=== PATIENT | male | born 1965 | race Caucasian/White ===

== ENCOUNTER → 2016-09-02 | Outpatient (CLI) | payer BC ==
[~2016-09-02] MED LIST: HUMIRA; PANT40TA PO; POTA1080; PRED-301; [UNRECOGNIZED DRUG - OTHER]
[2016-09-02 09:44] LABS: BASO % 0.6 %; BASO ABS # 0.06 K/uL (0-0.2); COMPLETE YES; EOS % 4.9 %; HEMATOCRIT 43.3 % (42-52); IG% 0.3 %; LYMPH % 27.6 %; LYMPH ABS # 2.71 K/uL (1.2-3.4); MEAN CELL VOLUME 90.6 fL (80-100); MEAN CORPUSCULAR HEMOGLOBIN 31.8 pg (25-34); MEAN CORPUSCULAR HGB CONC 35.1 g/dl (32-36); MEAN PLATELET VOLUME 11.1 fL (7.4-10.4); MONO % 9.9 %; NEUT % 56.7 %; PLATELET COUNT 194 K/uL (130-400); RED BLOOD COUNT 4.78 M/uL (4.7-6.1); WHITE BLOOD COUNT 9.82 K/uL (4.8-10.8)
[2016-09-02 09:48] LABS: URINE APPEARANCE CLEAR (CLEAR); URINE BILIRUBIN NEG (NEG); URINE COLOR YELLOW; URINE EPITHELIAL CELL AUTO 0-5 /lpf (0-5); URINE NITRITE NEG (NEG); URINE SPECIFIC GRAVITY 1.019 (1.000-1.030); UROBILINOGEN NEG (NEG)
[2016-09-02 09:51] LABS: MANUAL MICROSCOPIC REQUIRED? NO; REVIEW REQ? NO
[2016-09-02 09:55] LABS: ALT/SGPT 38 U/L (12-78); AST/SGOT 16 U/L (15-37); BLOOD UREA NITROGEN 19 mg/dl (7-18); BUN/CREATININE RATIO 17.1 (10-20); CALCIUM 8.9 mg/dl (8.5-10.1); CARBON DIOXIDE 27 mmol/L (21-32); CHLORIDE 101 mmol/L (98-107); GLUCOSE 86 mg/dl (70-99); POTASSIUM 3.8 mmol/L (3.5-5.1); SODIUM 138 mmol/L (136-145)
[2016-09-02 10:09] LABS: CHOLESTEROL 147 mg/dl (0-200); CHOLESTEROL/HDL RATIO 2.5; HDL CHOLESTEROL 59 mg/dl; LDL CHOLESTEROL CALCULATED 59 mg/dl; PROSTATE SPECIFIC ANTIGEN 0.355 ng/ml (0.000-4.000); TRIGLYCERIDES 145 mg/dl (0-150); VERY LOW DENSITY LIPOPROT CALC 29 mg/dl
[2016-09-02 10:12] LABS: ESTIMATED AVERAGE GLUCOSE 114 mg/dl; HA1C FLAG Normal (Normal)
--- NOTE | 2016-09-07 13:18 | CODING QUERY MEDICAL NECESSITY ---
SUPPORTING DIAGNOSIS NEEDED A supporting diagnosis is required for the test/procedure performed on this patient in order for us to be reimbursed by the patient's insurance. Please provide a supporting diagnosis for the following test/procedure listed below next to the test name along with your signature. *If there is no additional diagnosis for this patient that would support the following test/procedure please document that below next to the test/procedure. Test(s)/Procedure(s) that require a supporting diagnosis: DOS: 09/02/16 * PSA DIAGNOSIS: Provider Signature: Date: Thank you Ora [facility] Information Management Once completed, please kindly fax back to [phone] For questions please call [phone]
== END | disposition home or self-care (01) ==
LOC: C.LAB1850 07:47
PROVIDERS: ATTEND Internal Medicine
DX: E78.5 Hyperlipidemia, unspecified (principal); Z12.5 Encounter for screening for malignant neoplasm of prostate

== ENCOUNTER → 2017-03-31 | Outpatient (CLI) | payer BC ==
[~2017-03-31] MED LIST changes: +ADAL40KI IM; +AMLO-110 PO; +ASPI81TA28 PO; +ATOR-26 PO; +HYZ/10015 PO; +KRIL1CAP7 PO; +POTATAB2 PO; +PRED-301 PO; +[UNRECOGNIZED DRUG - CODE] PO
[2017-03-31 09:30] LABS: BASO % 0.6 %; BASO ABS # 0.06 K/uL (0-0.2); COMPLETE YES; EOS % 4.7 %; HEMATOCRIT 45.3 % (42-52); IG% 0.2 %; LYMPH % 22.8 %; LYMPH ABS # 2.33 K/uL (1.2-3.4); MEAN CELL VOLUME 90.8 fL (80-100); MEAN CORPUSCULAR HEMOGLOBIN 30.1 pg (25-34); MEAN CORPUSCULAR HGB CONC 33.1 g/dl (32-36); MEAN PLATELET VOLUME 10.9 fL (7.4-10.4); MONO % 9.8 %; NEUT % 61.9 %; PLATELET COUNT 194 K/uL (130-400); RED BLOOD COUNT 4.99 M/uL (4.7-6.1); WHITE BLOOD COUNT 10.23 K/uL (4.8-10.8)
[2017-03-31 09:36] LABS: URINE APPEARANCE CLEAR (CLEAR); URINE BILIRUBIN NEG (NEG); URINE COLOR YELLOW; URINE EPITHELIAL CELL AUTO 0-5 /lpf (0-5); URINE NITRITE NEG (NEG); URINE SPECIFIC GRAVITY 1.014 (1.000-1.030); UROBILINOGEN NEG (NEG)
[2017-03-31 09:37] LABS: MANUAL MICROSCOPIC REQUIRED? NO; REVIEW REQ? NO
[2017-03-31 09:41] LABS: ALT/SGPT 46 U/L (12-78); AST/SGOT 22 U/L (15-37); BLOOD UREA NITROGEN 13 mg/dl (7-18); BUN/CREATININE RATIO 11.9 (10-20); CALCIUM 8.8 mg/dl (8.5-10.1); CARBON DIOXIDE 26 mmol/L (21-32); CHLORIDE 103 mmol/L (98-107); GLUCOSE 96 mg/dl (70-99); POTASSIUM 4.1 mmol/L (3.5-5.1); SODIUM 136 mmol/L (136-145)
[2017-03-31 09:45] LABS: CHOLESTEROL 141 mg/dl (0-200); CHOLESTEROL/HDL RATIO 2.6; HDL CHOLESTEROL 55 mg/dl; LDL CHOLESTEROL CALCULATED 49 mg/dl; TRIGLYCERIDES 187 mg/dl (0-150); VERY LOW DENSITY LIPOPROT CALC 37 mg/dl
[2017-03-31 10:15] LABS: ESTIMATED AVERAGE GLUCOSE 117 mg/dl; HA1C FLAG Normal (Normal)
== END | disposition home or self-care (01) ==
LOC: C.LAB1850 07:52
PROVIDERS: ATTEND Internal Medicine
DX: E78.5 Hyperlipidemia, unspecified (principal)

== ENCOUNTER → 2017-05-31 | Day surgery (SDC) | payer BC ==
[2017-05-19 07:40] VITALS: Ht 170.2 cm; Wt 81.8 kg
[~2017-05-31] VITALS: Ht 170.2 cm; Wt 81.8 kg
[~2017-05-31] MED LIST changes: +ATROPINE SULFATE 0.1 MG/ML 5ML SYR IV PRN; +EpHEDrine SULFATE INJ 50 MG/ML AMP IV PRN; -HUMIRA; +LIDOCAINE HCL 2% 2 ML VIAL (20MG/ML) ONE; +MIDAZOLAM HCL 1 MG/ML 2ML VIAL ONE; +ONDANSETRON INJ 2 MG/ML 2 ML VIAL ONE; -PANT40TA PO; -POTA1080; -PRED-301; +PROPOFOL IV EMULSION 10 MG/ML 20 ML VIAL IV ONE; +SODIUM CHLORIDE 0.9% 500ML 500 ML IV ONE; -[UNRECOGNIZED DRUG - CODE] PO; -[UNRECOGNIZED DRUG - OTHER]
--- NOTE | 2017-05-31 10:08 | Endo History and Physical ---
History & Physical Date of Service: May 31, 2017. Chief Complaint: Screening Referring Physician: Dr. Vito Pryor History of Present Illness 52 yo CM who presents for screening colonoscopy. Past Surgical History Hx Cardiac Surgery: Yes (HEART CATH, NO STENTS; CABG X1 VESSEL) Hx Internal Defibrillator: No Hx Pacemaker: No Hx Abdominal Surgery: No Hx of Implantable Prosthesis: No Hx Post-Op Nausea and Vomiting: No Hx Cancer Surgery: No Hx Thoracic Surgery: No Hx Orthopedic: No Hx Urinary Tract Surgery: Yes (LITHOTRIPSY, TESTICULAR DISTORTION REPAIR) Family History Polyp Social History Smoking Status: Never Smoker Hx Substance Use: No Hx Alcohol Use: Yes ("A COUPLE BEERS/DAY") Allergies Coded Allergies: Iodinated Contrast Media (Verified Allergy, Unknown, RASH, 05/19/17) Current Medications Reported Home Medications Medications Dose Route/Sig Max Daily Dose Days Date Category Urocit-K 10 (Potassium Citrate (Alkalinizer) 1,080 Mg Tab 1 Tab PO QAM 05/19/17 Reported Krill Oil [place]-3 (Krill Oil) 1 Cap Cap 1 Cap PO BID 05/19/17 Reported Humira Pen (Adalimumab) 40 Mg/0.8 Ml Kit 1 Dose IM [id number] 05/19/17 Reported Norvasc (Amlodipine Besylate) 5 Mg Tab 5 Mg PO QAM 05/19/17 Reported Prednisone 5 Mg Tab 5 Mg PO QPM 05/19/17 Reported Hyzaar 25MG/100MG (HCTZ/Losartan Potassium) Tab 1 Tab PO QAM 05/19/17 Reported Lipitor (Atorvastatin Calcium) 80 Mg Tab 80 Mg PO QPM 05/19/17 Reported Aspirin Ec (Aspirin) 81 Mg Tab 81 Mg PO QAM 05/19/17 Reported Vital Signs Weight (Kilograms): 81.82 Height (Feet): 5 Height (Inches): 7 Date Time Temp Pulse Resp B/P (MAP) Pulse Ox O2 Delivery O2 Flow Rate FiO2 05/31/17 09:33 36.8 61 16 138/83 (101) 97 Room Air Physical Exam General Appearance: WD/WN, no apparent distress Respiratory/Chest: Auscultation: breath sounds normal Cardiovascular: Heart Auscultation: RRR Abdomen: Bowel Sounds: normal Inspection & Palpation: soft, non-distended, no tenderness, guarding & rebound Assessment and Plan Assessment: 52 yo CM who presents for screening colonoscopy. Plan: Proceed with colonoscopy.
--- NOTE | 2017-05-31 10:35 | GI REPORT ---
Procedure Date: 05/31/2017 9:45 AM Procedure: Colonoscopy Indications: Screening for colorectal malignant neoplasm Medicines: Monitored Anesthesia Care Complications: No immediate complications. Estimated Blood Loss: Estimated blood loss: none. Procedure: Pre-Anesthesia Assessment: - Prior to the procedure, a History and Physical was performed, and patient medications and allergies were reviewed. The patient's tolerance of previous anesthesia was also reviewed. The risks and benefits of the procedure and the sedation options and risks were discussed with the patient. All questions were answered, and informed consent was obtained. Prior Anticoagulants: The patient has taken aspirin, last dose was 1 day prior to procedure. ASA Grade Assessment: III - A patient with severe systemic disease. After reviewing the risks and benefits, the patient was deemed in satisfactory condition to undergo the procedure. After I obtained informed consent, the scope was passed under direct vision. Throughout the procedure, the patient's blood pressure, pulse, and oxygen saturations were monitored continuously. The scope was introduced through the anus and advanced to the terminal ileum. The colonoscopy was performed without difficulty. The patient tolerated the procedure well. The quality of the bowel preparation was good. The terminal ileum, ileocecal valve, appendiceal orifice, and rectum were photographed. Findings: The perianal and digital rectal examinations were normal. A 4 mm polyp was found in the sigmoid colon. The polyp was sessile. The polyp was removed with a cold snare. Resection and retrieval were complete. Non-bleeding internal hemorrhoids were found during retroflexion. The hemorrhoids were small. Impression: - One 4 mm polyp in the sigmoid colon, removed with a cold snare. Resected and retrieved. - Non-bleeding internal hemorrhoids. Recommendation: - Resume previous diet. - Continue present medications. - Repeat colonoscopy for surveillance based on pathology results. - Return to primary care physician as previously scheduled. Herrera Lerma DO 05/31/2017 10:35:16 AM This report has been signed electronically. Note Initiated On: 05/31/2017 9:45 AM I attest to the content of the Intraoperative Record and orders documented therein, exceptions below
--- NOTE | 2017-05-31 10:47 | Anesthesiology Progress Note ---
Anesthesia Post Op Note Date & Time May 31, 2017 at 10:47 Vital Signs Pain Intensity: 0 Vital Signs Past 12 Hours Date Time Temp Pulse Resp B/P (MAP) Pulse Ox O2 Delivery O2 Flow Rate FiO2 05/31/17 10:36 59 16 107/72 (84) 100 Room Air 05/31/17 09:33 36.8 61 16 138/83 (101) 97 Room Air Notes Mental Status: alert / awake / arousable, participated in evaluation Pt Amnestic to Procedure: Yes Nausea / Vomiting: adequately controlled Pain: adequately controlled Airway Patency, RR, SpO2: stable & adequate BP & HR: stable & adequate Hydration State: stable & adequate Anesthetic Complications: no major complications apparent
--- NOTE | 2017-05-31 10:55 | Discharge Instructions ---
Endoscopy Patient Instructions Date / Procedure(s) Performed May 31, 2017. Colonoscopy Allergy Information Coded Allergies: Iodinated Contrast Media (Verified Allergy, Unknown, RASH, 05/19/17) Discharge Date / Findings May 31, 2017. Colon polyp Internal hemorrhoids Medication Instructions Stopped Medication(s): Patient was told to hold everything except his norvasc this am. OK to resume all medications today as prescribed Reported Home Medications Medications Dose Route/Sig Max Daily Dose Days Date Category Urocit-K 10 (Potassium Citrate (Alkalinizer) 1,080 Mg Tab 1 Tab PO QAM 05/19/17 Reported Krill Oil [place]-3 (Krill Oil) 1 Cap Cap 1 Cap PO BID 05/19/17 Reported Humira Pen (Adalimumab) 40 Mg/0.8 Ml Kit 1 Dose IM [id number] 05/19/17 Reported Norvasc (Amlodipine Besylate) 5 Mg Tab 5 Mg PO QAM 05/19/17 Reported Prednisone 5 Mg Tab 5 Mg PO QPM 05/19/17 Reported Hyzaar 25MG/100MG (HCTZ/Losartan Potassium) Tab 1 Tab PO QAM 05/19/17 Reported Lipitor (Atorvastatin Calcium) 80 Mg Tab 80 Mg PO QPM 05/19/17 Reported Aspirin Ec (Aspirin) 81 Mg Tab 81 Mg PO QAM 05/19/17 Reported Provider Instructions Activity Restrictions - No exercising or heavy lifting for 24 hours. - Do not drink alcohol the day of the procedure. - Do not drive a car or operate machinery until the day after the procedure. - Do not make any important decisions or sign important papers in 24 hours after the procedure. Following Day: - Return to full activity which may include returning to work/school. Diet Start your diet with liquids and light foods (jello, soup, juice, toast). Then eat your usual diet if not nauseated. Treatment For Common After Affects For mild abdominal pain, bloating, or excessive gas: - Rest - Eat lightly - Lie on right side Follow-Up Information Follow-up with Dr. Vito Pryor as scheduled Anesthesia Information What You Should Know You have had a procedure that required some medicine to reduce anxiety and discomfort. This treatment is called moderate sedation. After receiving the treatment, you may be sleepy, but you will be able to breathe on your own. The effects of the treatment may last for several hours. Follow these instructions along with Activity/Diet recommendations noted above: * Do NOT do anything where dizziness or clumsiness would be dangerous. * Rest quietly at home today, then you can be up and about tomorrow. * Have a responsible person stay with you the rest of today. * You may have had an I.V. today. If so, you may take the dressing off later today. Recommendations Call your doctor if: * Trouble breathing * Continuous vomiting for more than 24 hours * Temperature above 101 degrees * Severe abdominal pain or bloating * Pain not relieved by pain medicine ordered * There is increased drainage or redness from any incision * A large amount of rectal bleeding greater than 2-3 tablespoons. (If you had a polyp/s removed or have hemorrhoids, a small amount of blood - from the rectum is to be expected.) * You have any unanswered questions or concerns. IN THE EVENT OF A SERIOUS EMERGENCY, GO TO THE NEAREST EMERGENCY ROOM Your discharge instructions were prepared by provider Herrera Lerma. Patient Instructions Signature Page Iain Kay Patient (or Guardian) Signature/Date: I have read and understand the instructions given to me by my caregivers. Caregiver/RN/Doctor Signature/Date: The above-named patient and/or guardian has received patient instructions on this date. + Original Patient Signature Page (only) stays with chart. Please make copy for patient.
[2017-05-31 11:06] VITALS: BP 136/86; PULSE 55; O2SAT 100
== END | disposition home or self-care (01) ==
LOC: C.GI 09:14
PROVIDERS: ATTEND Internal Medicine
DX: Z12.11 Encounter for screening for malignant neoplasm of colon (principal); D12.5 Benign neoplasm of sigmoid colon; K64.8 Other hemorrhoids; I25.10 Atherosclerotic heart disease of native coronary artery without angina pectoris; I10 Essential (primary) hypertension; I25.2 Old myocardial infarction; Z88.8 Allergy status to other drugs, medicaments and biological substances; Z79.899 Other long term (current) drug therapy; Z79.82 Long term (current) use of aspirin; Z95.1 Presence of aortocoronary bypass graft; Z98.890 Other specified postprocedural states; Z83.71 Family history of colonic polyps; Z68.28 Body mass index [BMI] 28.0-28.9, adult

== ENCOUNTER → 2017-09-30 | Outpatient (CLI) | payer OTHER ==
[~2017-09-30] MED LIST changes: -ATROPINE SULFATE 0.1 MG/ML 5ML SYR IV PRN; -EpHEDrine SULFATE INJ 50 MG/ML AMP IV PRN; -LIDOCAINE HCL 2% 2 ML VIAL (20MG/ML) ONE; -MIDAZOLAM HCL 1 MG/ML 2ML VIAL ONE; -ONDANSETRON INJ 2 MG/ML 2 ML VIAL ONE; -PROPOFOL IV EMULSION 10 MG/ML 20 ML VIAL IV ONE; -SODIUM CHLORIDE 0.9% 500ML 500 ML IV ONE
--- NOTE | 2017-09-30 08:05 | DIAGNOSTIC IMAGING REPORT ---
KUB HISTORY: Follow-up study in a patient with nephrolithiasis N20.0 Nephrolithiasis COMPARISON: [facility]UB 06/05/2016. FINDINGS: The bowel gas pattern is non-obstructive. There is no organomegaly. Punctate bilateral nephrolithiasis redemonstrated without definite ureteral calculi identified. Calcifications of the pelvis suggest phleboliths. No pneumoperitoneum or pneumatosis. No fracture. Partially imaged suspected pacer leads are noted within the central lower chest. IMPRESSION: Punctate bilateral nephrolithiasis without ureteral calculi identified. Electronically signed by: Arnie Sevilla M.D. 09/30/2017 8:04 AM Dictated Date/Time: 09/30/2017 8:02 AM
[2017-09-30 09:33] LABS: BASO % 0.5 %; BASO ABS # 0.05 K/uL (0-0.2); EOS % 5.6 %; EOS ABS # 0.53 K/uL (0-0.5); HEMOGLOBIN 14.9 g/dL (14.0-18.0); IG# 0.02 K/uL (0.00-0.02); LYMPH % 34.7 %; LYMPH ABS # 3.26 K/uL (1.2-3.4); MEAN CELL VOLUME 89.8 fL (80-100); MEAN CORPUSCULAR HEMOGLOBIN 30.4 pg (25-34); MEAN CORPUSCULAR HGB CONC 33.9 g/dl (32-36); MEAN PLATELET VOLUME 11.4 fL (7.4-10.4); MONO % 9.6 %; NEUT % 49.4 %; NEUT ABS # 4.63 K/uL (1.4-6.5); PLATELET COUNT 186 K/uL (130-400); RED CELL DISTRIBUTION WIDTH CV 12.9 % (11.5-14.5); RED CELL DISTRIBUTION WIDTH SD 41.9 fL (36.4-46.3); WHITE BLOOD COUNT 9.39 K/uL (4.8-10.8)
[2017-09-30 09:49] LABS: ALT/SGPT 39 U/L (12-78); AST/SGOT 20 U/L (15-37); BLOOD UREA NITROGEN 19 mg/dl (7-18); CALCIUM 8.9 mg/dl (8.5-10.1); CARBON DIOXIDE 25 mmol/L (21-32); CREATININE 1.11 mg/dl (0.60-1.40); GLUCOSE 93 mg/dl (70-99); POTASSIUM 3.8 mmol/L (3.5-5.1); SODIUM 135 mmol/L (136-145)
[2017-09-30 09:55] LABS: CHOLESTEROL 145 mg/dl (0-200); LDL CHOLESTEROL CALCULATED 69 mg/dl
[2017-09-30 10:00] LABS: HEMOGLOBIN A1C 5.7 % (4.5-5.6)
== END | disposition home or self-care (01) ==
LOC: C.RAD 07:24
PROVIDERS: ATTEND Internal Medicine
DX: N20.0 Calculus of kidney (principal); E78.5 Hyperlipidemia, unspecified

== ENCOUNTER 2022-02-02 21:58 | Observation (INO) ==
[2022-02-02 22:44] LABS: Basophils # (auto) 0.02 K/uL (0-0.2); Basophils % (auto) 0.1 %; Eosinophils # (auto) 0.36 K/uL (0-0.5); Eosinophils % (auto) 2.3 %; Hematocrit (blood only) 38.7 % (42-52); Hemoglobin 13.1 g/dL (14.0-18.0); Immature Granulocytes # (auto) 0.06 K/uL (0.00-0.02); Immature Granulocytes % (auto) 0.4 %; Lymphocytes # (auto) 2.33 K/uL (1.2-3.4); Lymphocytes % (auto) 14.8 %; Mean Corpuscular Hemoglobin 30.7 pg (25-34); Mean Corpuscular Hgb Conc 33.9 g/dL (32-36); Mean Corpuscular Volume 90.6 fL (80-100); Mean Platelet Volume 10.2 fL (7.4-10.4); Monocytes # (auto) 1.46 K/uL (0.11-0.59); Monocytes % (auto) 9.3 %; Neutrophils # (auto) 11.54 K/uL (1.4-6.5); Neutrophils % (auto) 73.1 %; Platelet Count 211 K/uL (130-400); RDW Coefficient of Variation 14.1 % (11.5-14.5); RDW Standard Deviation 46.6 fL (36.4-46.3); Red Blood Count 4.27 M/uL (4.7-6.1); White Blood Count 15.77 K/uL (4.8-10.8)
[2022-02-02 22:49] LABS: Appearance Urine Clear (Clear); Bacteria Urine Automated Negative (Negative); Bilirubin Urine Negative (Negative); Blood Urine 3+ (Negative); Cast Urine Automated 0 /lpf (0-5); Color Urine Yellow; Epithelial Cell Urine Auto 0-5 /lpf (0-5); Glucose Urine UA Negative (Negative); Ketones Urine Negative (Negative); Leukocyte Esterase Urine Negative (Negative); Nitrite Urine Negative (Negative); Protein Urine Negative (Negative); RBC Urine Automated >30 /hpf (0-4); Specific Gravity Urine 1.012 (1.000-1.030); Urobilinogen Urine Negative (Negative)
[2022-02-02] MEDS ORDERED: diphenhydrAMINE 50 MG/ML VIAL IV STA (22:57)
[2022-02-02] MEDS ORDERED: methylPREDNISolone 125 MG/2 ML VIAL IV STA (22:57)
[2022-02-02 23:13] LABS: Albumin Globulin Ratio 1.7 (0.9-2); Albumin Level 4.5 gm/dl (3.4-5.0); BUN Creatinine Ratio 17.7 (10-20); Bilirubin,Total 0.8 mg/dl (0.2-1.0); Calcium 9.1 mg/dl (8.5-10.1); Creatinine Clr Calc Pharmacy 53.1 ml/min; Est GFR (African American) 55.8 ml/min; Est GFR (Non-African American) 48.2 ml/min; Globulin 2.7 gm/dl (2.5-4.0); Potassium 3.3 mmol/L (3.5-5.1); Total Protein 7.2 gm/dl (6.0-8.3)
[2022-02-03] MEDS ORDERED: ONDANSETRON INJ 2 MG/ML 2 ML VIAL IV STA (00:03)
[2022-02-03] MEDS ORDERED: MoRPHine SULFATE 4 MG/ML 1 ML CARP\\VIAL IV PRN (00:03)
[2022-02-03] MEDS ORDERED: OPTIRAY 320 100ml IV ONE (00:49)
--- NOTE | 2022-02-03 02:31 | Emergency Department Note ---
History of Present Illness General Chief complaint: Illness Stated complaint: R SIDE PAIN Time Seen by Provider: 02/02/22 23:56 History of Present Illness Maximum Pain Intensity: 8 This is a 56-year-old male presenting to the emergency department for evaluation of right-sided abdominal pain for the past 8 or 9 hours. The patient states that it feels like it started in his groin and has moved up into the stomach area. He was able to eat and drink as normal today, but did vomit on his way to the ER. The pain is not colicky and he rates it an 8/10, dull, and persistent. He does not have a history of previous abdominal surgeries. The patient is on Humira for psoriatic arthritis. He has not taken anything [id number] for symptoms. He cannot identify aggravating or alleviating factors. Home Medications Medication Instructions Recorded Confirmed Type omega-3 fatty acids 100 mg 600 mg PO QAM tab 03/27/19 01/26/22 History chewable tablet acetaminophen 500 mg tablet 1,000 mg PO Q6H PRN 07/11/21 01/26/22 History (Tylenol Extra Strength) adalimumab 40 mg/0.8 mL 40 mg SQ Q14D 07/11/21 01/26/22 History subcutaneous pen kit (Humira Pen) aspirin 81 mg tablet,delayed 81 mg PO QAM 07/11/21 01/26/22 History release (Adult Low Dose Aspirin) amlodipine 5 mg tablet 5 mg PO QAM #90 tab 08/01/21 01/26/22 Rx atorvastatin 80 mg tablet 80 mg PO DAILY #90 tab 08/01/21 01/26/22 Rx losartan 100 1 tab PO QAM #90 tab 08/01/21 01/26/22 Rx mg-hydrochlorothiazide 25 mg tablet potassium citrate 10 mEq (1,080 10 meq PO QAM #90 tab 08/01/21 01/26/22 Rx mg) tablet,extended release prednisone 5 mg tablet 5 mg PO DAILY 08/01/21 01/26/22 History sildenafil 50 mg tablet 50 mg PO DAILY PRN #30 tab 08/01/21 01/26/22 Rx cefdinir 300 mg capsule 300 mg PO BID 10 Days #20 cap 02/03/22 Rx Allergies Allergy/AdvReac Type Severity Reaction Status Date / Time Iodinated Contrast Media Allergy Unknown RASH Verified 01/26/22 15:34 Penicillins AdvReac Verified 01/26/22 15:34 Past Med/Surg History Medical History Chest pain Coronary artery disease, occlusive Enlarged prostate without lower urinary tract symptoms (luts) Erectile dysfunction High risk medication use Hyperglycemia Hyperlipidemia Hyperplastic colon polyp Hypertension Nephrolithiasis No pertinent family history Peripheral neuropathy Psoriasis Surgical History Hx of heart bypass surgery 1v CABG 2009 INGRID-RCA in s/o STEMI Family History Other No pertinent family history Denies family history of Ovarian cancer Prostate cancer Breast cancer Lung cancer Colorectal cancer Social History Smoking Status: Never smoker Second Hand Exposure: No; Hx Alcohol Use: Yes Alcohol type: beer Hx Substance Use: No Preferred Language: [place] Zealander Communication Ability: Effective Visual Impairment: No Limitations Hearing Ability: Normal Sand Shoveler Required: No Beliefs That Will Affect Care: None marital status: Current Living Situation: Spouse current occupational status: employed Feels Safe at Home: Yes Safety Concerns: Feels Safe At This Time caffeine: Yes Dental Care, Regularly: Yes Seatbelt Use: always Sunscreen Use: Yes Assistive Devices: None Review of Systems A total of 10 systems reviewed and were otherwise negative Physical Exam Vital Signs Vital Signs - 24 hr 02/02/22 22:04 02/03/22 01:28 02/03/22 01:31 Temperature 37.9 C H Temperature Source Oral Pulse Rate 83 Pulse Rate [Finger] 62 Pulse Rhythm Regular Pulse Rhythm [Finger] Pulse Strength Normal Respiratory Rate 18 16 Respiratory Effort / Characteristics Non-Labored Spontaneous Non-Labored Respiratory Depth Normal Normal Respiratory Pattern Regular Regular Blood Pressure [Right Arm] 142/79 H Blood Pressure Mean [Right Arm] 100 Blood Pressure Position Sitting Blood Pressure Position [Right Arm] Lying Pulse Oximetry 96 93 93 Oxygen Delivery Method Room Air Room Air Room Air Sepsis Recent Fever Within 48 Hours Yes Sepsis New/Unexplained Change in Mental Status N/A Sepsis Action Taken by Nursing No Action Required 02/03/22 03:30 Temperature Temperature Source Pulse Rate Pulse Rate [Finger] 91 H Pulse Rhythm Pulse Rhythm [Finger] Regular Pulse Strength Respiratory Rate 20 Respiratory Effort / Characteristics Non-Labored Respiratory Depth Normal Respiratory Pattern Regular Blood Pressure [Right Arm] 134/96 Blood Pressure Mean [Right Arm] 108 Blood Pressure Position Blood Pressure Position [Right Arm] Lying Pulse Oximetry 94 Oxygen Delivery Method Room Air Sepsis Recent Fever Within 48 Hours Sepsis New/Unexplained Change in Mental Status Sepsis Action Taken by Nursing VITALS: Vitals are noted on the nurse's note and reviewed by myself. Vital signs with low-grade fever GENERAL: Well-developed, well-nourished, white male, who is in no acute distress and resting comfortably. Patient is cooperative with the examination. HEAD: Normocephalic atraumatic. HEART: Regular rate and rhythm without murmurs gallops or rubs. LUNGS: Clear to auscultation bilaterally without wheezes, rales or rhonchi. No retractions or accessory muscle use. ABDOMEN: Positive normal bowel sounds x 4. Soft, nontender, without masses or organomegaly. No guarding or rebound tenderness. MUSCULOSKELETAL: No muscle atrophy, erythema, or edema noted. Full range of motion in all extremities. NEURO: Patient was alert and oriented to person place and time. CN II through XII grossly intact. Course Administered Medications Discontinued Medications Acetaminophen (Acetaminophen 500 Mg Tab) 1,000 mg PO Q8H [facility] Stop: 03/05/22 05:59 Last Admin: 02/03/22 14:48 Dose: 1,000 mg Documented by: [id number] Admin: 02/03/22 05:46 Dose: 1,000 mg Documented by: [id number] Aspirin (Aspirin 81 Mg Ectab) 81 mg PO QAM ANTHONY Stop: 03/05/22 08:59 Last Admin: 02/03/22 08:38 Dose: 81 mg Documented by: [id number] Atorvastatin Calcium (Atorvastatin 40 Mg Tab) 80 mg PO DAILY ANTHONY Stop: 03/05/22 08:59 Last Admin: 02/03/22 08:38 Dose: 80 mg Documented by: [id number] Diphenhydramine HCl (Diphenhydramine 50 Mg/Ml Vial) 25 mg IV NOW STA Stop: 02/02/22 22:58 Last Admin: 02/02/22 23:58 Dose: 25 mg Documented by: [id number] Ceftriaxone Sodium (Rocephin) 2,000 mg in 70 mls @ 140 mls/hr IV NOW STA Stop: 02/03/22 03:15 Last Infusion: 02/03/22 04:25 Dose: 0 mls/hr Documented by: [id number] Admin: 02/03/22 03:42 Dose: 140 mls/hr Documented by: [id number] Sodium Chloride (Nss) 500 mls @ 125 mls/hr IV .Q4H ANTHONY Stop: 02/03/22 09:12 Last Infusion: 02/03/22 10:49 Dose: 0 mls/hr Documented by: [id number] Admin: 02/03/22 05:47 Dose: 125 mls/hr Documented by: [id number] Ioversol (Optiray 320 100ml) 100 ml IV ONCE ONE Stop: 02/03/22 00:50 Last Admin: 02/03/22 00:50 Dose: 93 ml Documented by: [id number] Methylprednisolone (Methylprednisolone 125 Mg/2 Ml Vial) 125 mg IV NOW STA Stop: 02/02/22 22:58 Last Admin: 02/02/22 23:58 Dose: 125 mg Documented by: [id number] Ondansetron HCl (Ondansetron Inj 2 Mg/Ml 2 Ml Vial) 4 mg IV NOW STA Stop: 02/03/22 00:04 Last Admin: 02/03/22 03:42 Dose: Not Given Documented by: [id number] Potassium Chloride (Potassium Chloride Crtab 20 Meq Tabcr) 40 meq PO NOW STA Stop: 02/03/22 05:14 Last Admin: 02/03/22 05:46 Dose: 40 meq Documented by: [id number] Potassium Chloride (Potassium Chloride Crtab 20 Meq Tabcr) 40 meq PO NOW ONE Stop: 02/03/22 12:01 Last Admin: 02/03/22 11:41 Dose: 40 meq Documented by: [id number] Tamsulosin HCl (Tamsulosin Hcl 0.4 Mg Cap) 0.4 mg PO NOW ONE Stop: 02/03/22 05:14 Last Admin: 02/03/22 05:46 Dose: 0.4 mg Documented by: [id number] Medical Decision Making Differential Diagnosis Differential diagnosis: Etiologies such as biliary colic, cholecystitis, hepatitis, pancreatitis, cardiac disease, pancreatitis, gastritis, peptic ulcer disease, appendicitis, cystitis, diverticulitis, mesenteric ischemia, inflammatory bowel disease, ileus, bowel obstruction, testicular/adnexal torsion, aortic pathology, shingles, as well as others were considered Laboratory Data Result diagrams: 02/03/22 06:11 02/03/22 06:11 Lab Results 02/02/22 02/02/22 02/02/22 Range/Units 22:32 22:32 22:32 WBC 15.77 H (4.8-10.8) K/uL RBC 4.27 L (4.7-6.1) M/uL Hgb 13.1 L (14.0-18.0) g/dL Hct 38.7 L (42-52) % MCV 90.6 (80-100) fL MCH 30.7 (25-34) pg MCHC 33.9 (32-36) g/dL RDW Std Deviation 46.6 H (36.4-46.3) fL RDW Coeff of Seth 14.1 (11.5-14.5) % Plt Count 211 (130-400) K/uL MPV 10.2 (7.4-10.4) fL Immature Gran % (Auto) 0.4 % Neut % (Auto) 73.1 % Lymph % (Auto) 14.8 % [place] % (Auto) 9.3 % Eos % (Auto) 2.3 % Baso % (Auto) 0.1 % Neut # (Auto) 11.54 H (1.4-6.5) K/uL Lymph # (Auto) 2.33 (1.2-3.4) K/uL [place] # (Auto) 1.46 H (0.11-0.59) K/uL Eos # (Auto) 0.36 (0-0.5) K/uL Baso # (Auto) 0.02 (0-0.2) K/uL Immature Gran # (Auto) 0.06 H (0.00-0.02) K/uL Sodium 139 (136-145) mmol/L Potassium 3.3 L (3.5-5.1) mmol/L Chloride 103 (98-107) mmol/L Carbon Dioxide 26 (21-32) mmol/L Anion Gap 10 (3-11) BUN 28 H (6-23) mg/dl Creatinine 1.58 H (0.6-1.4) mg/dl Est Cr Clr Drug Dosing 53.1 ml/min Est GFR ( Amer) 55.8 ml/min Est GFR (Non-Af Amer) 48.2 ml/min BUN/Creatinine Ratio 17.7 (10-20) Glucose 104 H (70-99(Fasting)) mg/dl Lactate (0.4-2.0) mmol/L Calcium 9.1 (8.5-10.1) mg/dl Total Bilirubin 0.8 (0.2-1.0) mg/dl AST 21 (13-39) U/L ALT 22 (7-52) U/L Alkaline Phosphatase 42 (34-104) U/L Total Protein 7.2 (6.0-8.3) gm/dl Albumin 4.5 (3.4-5.0) gm/dl Globulin 2.7 (2.5-4.0) gm/dl Albumin/Globulin Ratio 1.7 (0.9-2) Lipase 41 (11-82) U/L Urine Color Yellow Urine Appearance Clear (Clear) Urine pH 5.0 (4.5-7.5) Ur Specific [place] 1.012 (1.000-1.030) Urine Protein Negative (Negative) Urine Glucose (UA) Negative (Negative) Urine Ketones Negative (Negative) Urine Blood 3+ H (Negative) Urine Nitrite Negative (Negative) Urine Bilirubin Negative (Negative) Urine Urobilinogen Negative (Negative) Ur Leukocyte Esterase Negative (Negative) Urine WBC (Auto) 1-5 (0-5) /hpf Urine RBC (Auto) >30 H (0-4) /hpf U Hyaline Cast (Auto) 0 (0-5) /lpf U Epithel Cells (Auto) 0-5 (0-5) /lpf Urine Bacteria (Auto) Negative (Negative) SARS-CoV-2, RNA, NAAT (NEGATIVE) 02/03/22 02/03/22 Range/Units 00:13 00:28 WBC (4.8-10.8) K/uL RBC (4.7-6.1) M/uL Hgb (14.0-18.0) g/dL Hct (42-52) % MCV (80-100) fL MCH (25-34) pg MCHC (32-36) g/dL RDW Std Deviation (36.4-46.3) fL RDW Coeff of Seth (11.5-14.5) % Plt Count (130-400) K/uL MPV (7.4-10.4) fL Immature Gran % (Auto) % Neut % (Auto) % Lymph % (Auto) % [place] % (Auto) % Eos % (Auto) % Baso % (Auto) % Neut # (Auto) (1.4-6.5) K/uL Lymph # (Auto) (1.2-3.4) K/uL [place] # (Auto) (0.11-0.59) K/uL Eos # (Auto) (0-0.5) K/uL Baso # (Auto) (0-0.2) K/uL Immature Gran # (Auto) (0.00-0.02) K/uL Sodium (136-145) mmol/L Potassium (3.5-5.1) mmol/L Chloride (98-107) mmol/L Carbon Dioxide (21-32) mmol/L Anion Gap (3-11) BUN (6-23) mg/dl Creatinine (0.6-1.4) mg/dl Est Cr Clr Drug Dosing ml/min Est GFR ( Amer) ml/min Est GFR (Non-Af Amer) ml/min BUN/Creatinine Ratio (10-20) Glucose (70-99(Fasting)) mg/dl Lactate 0.8 (0.4-2.0) mmol/L Calcium (8.5-10.1) mg/dl Total Bilirubin (0.2-1.0) mg/dl AST (13-39) U/L ALT (7-52) U/L Alkaline Phosphatase (34-104) U/L Total Protein (6.0-8.3) gm/dl Albumin (3.4-5.0) gm/dl Globulin (2.5-4.0) gm/dl Albumin/Globulin Ratio (0.9-2) Lipase (11-82) U/L Urine Color Urine Appearance (Clear) Urine pH (4.5-7.5) Ur Specific [place] (1.000-1.030) Urine Protein (Negative) Urine Glucose (UA) (Negative) Urine Ketones (Negative) Urine Blood (Negative) Urine Nitrite (Negative) Urine Bilirubin (Negative) Urine Urobilinogen (Negative) Ur Leukocyte Esterase (Negative) Urine WBC (Auto) (0-5) /hpf Urine RBC (Auto) (0-4) /hpf U Hyaline Cast (Auto) (0-5) /lpf U Epithel Cells (Auto) (0-5) /lpf Urine Bacteria (Auto) (Negative) SARS-CoV-2, RNA, NAAT NEGATIVE (NEGATIVE) Imaging Data Radiologist's Impression: Preliminary Findings Only See Final Report For Complete Findings CT ABDOMEN & PELVIS With Contrast: Comparison: None. Minimal posterior dependent atelectasis. Normal cardiac size. Coronary artery calcifications with midline sternotomy wires. Small low-attenuation lesion within the left liver lobe measuring 10 mm, likely benign in the absence of known neoplasm such as cyst or hemangioma. Otherwise normal liver. Normal gallbladder and biliary system. Normal pancreas and bilateral adrenal glands. Small low-attenuation lesion within the inferior aspect of the spleen measuring 1.2 cm which could represent cyst versus hypoattenuated lesion. Recommend follow-up ultrasound to evaluate cystic versus solid lesion within the liver and spleen. Right middle renal pole simple cyst measuring 1.5 cm. Mild bilateral perinephric stranding with mild irregularity along the corticomedullary junction, cannot exclude pyelonephritis. Otherwise unremarkable bilateral kidneys. Mild atherosclerotic disease of aorta with no aneurysm. Unremarkable stomach and small bowel. Unremarkable colon with no focal inflammation. Normal appendix Normal urinary bladder. Normal size of prostate gland. Degenerative disease of the spine. Radiologist:Celi Ramos MD [facility] Narrative Physical exam and history were performed. Nursing notes, EMR, and Medication List were personally reviewed. Patient appears to have right-sided abdominal pain bringing him to the ER. Patient is on Humira and does have a low-grade fever here in the ER. IV access was established and labs were obtained. He was hydrated with normal saline and given IV morphine and IV Zofran for comfort. Patient was sent to CT scan for his symptoms. Patient's blood work is as above and was reviewed. She does have an elevated white blood cell count of greater than 15,000. He does not have significant bandemia or gross electrolyte imbalance. Lactic is negative blood cultures pending. Urine has blood but no distinct evidence of infection. CT scan was reviewed by myself and [facility]. Concern is for perinephric stranding on CT scan. This is atypical as it is bilateral. Radiology did not distinctly report stone on imaging, however this is certainly within the differential as well. I do have concern for the patient's status as he is febrile with elevated white count on Humira. He was started on Rocephin here in the ER. Case was discussed with the on-call hospitalist team who agreed to evaluate patient here in the ER. Please see their dictation for further patient course, plan, disposition. The chart was completed utilizing [employer] Speech Voice Recognition Software. Grammatical errors, random word insertions, pronoun errors, and incomplete sentences are an occasional consequence of this system due to software limitations, ambient noise, and hardware issues. Any formal questions or concerns about the content, text, or information contained within the body of this dictation should be directly addressed to the provider for clarification. . Impression & Plan Right sided abdominal pain, Adalimumab (Humira) long-term use Discharge Plan Visit Data Chief Complaint: Illness Stated Complaint: R SIDE PAIN ED Provider: Keke Champion ED Midlevel Provider: Iain Mae Discharge Problem: Right sided abdominal pain, Adalimumab (Humira) long-term use Patient Disposition: Admitted As Inpatient Condition: Good Discharge Instructions Interventions: ED Discharge Assessment Last Done: 02/03/22 04:39
[2022-02-03] MEDS ORDERED: cefTRIAXone SODIUM 2,000 MG/70 ML BAG IV STA (02:46)
--- NOTE | 2022-02-03 03:01 | History & Physical Report ---
Date of Service February 03, 2022 Assessment & Plan (1) Abdominal pain: Plan: 56yo male with a history of nephrolithiasis, BPH, HTN, HLD, CAD, and psoriatic arthritis presents with a one-day history of right-sided abdominal pain. Abdominal pain, flank pain Patient had an elevated temp to 37.9, vitals were otherwise stable Labs were notable for a leukocytosis to 15.8 (neutrophil predominant), creatinine 1.58 (baseline 1.1), and mild hypokalemia Lactate, calcium, LFTs, and lipase were all unremarkable. UA was notable for 3+ blood and RBCs; urine and blood cultures pending CT a/p read ([facility]): mild perinephric stranding with irregularity along corticomedullary junction, right middle renal pole simple cyst measuring 1.5cm Differential includes nephrolithiasis +/- pyelonephritis, less likely biliary colic, pancreatitis given these were all wnl on imaging ([facility] read) If pyelonephritis - patient is on humira and prednisone chronically which could explain the lack of pyuria Stranding is bilateral, though symptoms were unilateral; possibly explained by patient's immunosuppression Given sudden improvement in pain, suspect a passed kidney stone; will hold overnight to monitor clinical improvement and treat possible infection NSS @ 125mL/hr Ceftriaxone x1 given in ED, continue qd while inpatient Start tamsulosin APAP 1000mg q8h scheduled for pain +/- fever Trend CBC, CMP BPH Patient hasn't had urinary symptoms, but outflow obstruction could explain why the perinephric stranding is bilateral; however there is no hydronephrosis Patient's immunosuppression could also explain why there is no pyuria if outflow obstruction is causing current picture Bladder normal in appearance on CT a/p ([facility]), awaiting home read Consider adding 5-AR inhibitor Psoriatic arthritis Holding home prednisone (and humira) given concern for infection Resume these upon discharge Mild hypokalemia Potassium 3.3 on admission; KCl 40mEq PO x1 administered Trend BMP Liver mass Likely-incidental finding of a 10mm left liver lobe lesion seen on imaging, likely benign in absence of known neoplasm/cyst/hemangioma Liver otherwise unremarkable in appearance ([facility] read); awaiting in-house radiologist read LFTs wnl Unlikely related to current clinical presentation, no intervention indicated, outpatient follow-up recommended Spleen mass 1.2cm lesion of inferior pole of spleen seen on imaging ([facility] read), read as likely cyst vs hypoattenuated lesion Unlikely related to current clinical presentation, no intervention indicated, outpatient follow-up recommended Renal cyst Right middle renal pole simple cyst measuring 1.5cm seen on CT a/p ([facility] read), awaiting in-house read Unlikely related to current clinical presentation, no intervention indicated, outpatient follow-up recommended Chronic conditions: HTN: BP well-controlled at this time; holding home losartan-HCTZ, amlodipine HLD, CAD: continue home atorvastatin, aspirin Erectile dysfunction: holding home sildenafil FEN: NSS@125mL//hr Code status: full code DVT ppx: SCDs Dispo: med/surg History of Present Illness Primary Care Provider: Mari Bae MD 56yo male with a history of nephrolithiasis, BPH, HTN, HLD, CAD, and psoriatic arthritis presents with a one-day history of right-sided abdominal pain. Patient notes it started in his right groin and has moved upwards. Food/fluid intake today has been normal, though patient did vomit on the way to the hospital. The pain is dull, constant, 8/10 pain. No identifiable alleviating/aggravating f actors. No dysuria or hematuria noted. No prior history of abdominal surgeries. Of note, patient is on humira for psoriatic arthritis. In the ED: Patient had an elevated temp to 37.9, vitals were otherwise stable Labs were notable for a leukocytosis to 15.8 (neutrophil predominant), creatinine 1.58 (baseline 1.1), and mild hypokalemia Lactate, calcium, LFTs, and lipase were all unremarkable. UA was notable for 3+ blood and RBCs. Upon my interview (at 04:00), patient notes about 30 minutes ago, his pain suddenly resolved almost entirely. Patient notes very mild right flank discomfort but denies abdominal pain, groin pain, feeling feverish, chills, nausea, vomiting, diarrhea, CP, SOB, or other symptoms. Patient denies any urinary hesitancy or incomplete voiding. Allergies Allergy/AdvReac Type Severity Reaction Status Date / Time Iodinated Contrast Media Allergy Unknown RASH Verified 01/26/22 15:34 Penicillins AdvReac Verified 01/26/22 15:34 Home Medications Medication Instructions Recorded Confirmed Type omega-3 fatty acids 100 mg 600 mg PO QAM tab 03/27/19 01/26/22 History chewable tablet acetaminophen 500 mg tablet 1,000 mg PO Q6H PRN 07/11/21 01/26/22 History (Tylenol Extra Strength) adalimumab 40 mg/0.8 mL 40 mg SQ Q14D 07/11/21 01/26/22 History subcutaneous pen kit (Humira Pen) aspirin 81 mg tablet,delayed 81 mg PO QAM 07/11/21 01/26/22 History release (Adult Low Dose Aspirin) amlodipine 5 mg tablet 5 mg PO QAM #90 tab 08/01/21 01/26/22 Rx atorvastatin 80 mg tablet 80 mg PO DAILY #90 tab 08/01/21 01/26/22 Rx losartan 100 1 tab PO QAM #90 tab 08/01/21 01/26/22 Rx mg-hydrochlorothiazide 25 mg tablet potassium citrate 10 mEq (1,080 10 meq PO QAM #90 tab 08/01/21 01/26/22 Rx mg) tablet,extended release prednisone 5 mg tablet 5 mg PO DAILY 08/01/21 01/26/22 History sildenafil 50 mg tablet 50 mg PO DAILY PRN #30 tab 08/01/21 01/26/22 Rx cefdinir 300 mg capsule 300 mg PO BID 10 Days #20 cap 02/03/22 Rx Past Med/Surg History Medical History Chest pain Coronary artery disease, occlusive Enlarged prostate without lower urinary tract symptoms (luts) Erectile dysfunction High risk medication use Hyperglycemia Hyperlipidemia Hyperplastic colon polyp Hypertension Nephrolithiasis No pertinent family history Peripheral neuropathy Psoriasis Surgical History Hx of heart bypass surgery 1v CABG 2009 INGRID-RCA in s/o STEMI Family History Other No pertinent family history Denies family history of Ovarian cancer Prostate cancer Breast cancer Lung cancer Colorectal cancer Social History Smoking Status: Never smoker Second Hand Exposure: No; Hx Alcohol Use: Yes Alcohol type: beer Hx Substance Use: No Preferred Language: [place] Communication Ability: Effective Visual Impairment: No Limitations Hearing Ability: Normal Childcare Director Required: No Beliefs That Will Affect Care: None marital status: Current Living Situation: Spouse current occupational status: employed Feels Safe at Home: Yes Safety Concerns: Feels Safe At This Time caffeine: Yes Dental Care, Regularly: Yes Seatbelt Use: always Sunscreen Use: Yes Assistive Devices: None Review of Systems Review of Systems: See HPI Physical Exam Physical Exam: Constitutional: well-appearing, no acute distress HEENT: MMM CV: regular rhythm, no murmur appreciated, extremities well-perfused, no LE edema Resp: CTABL, no wheezes/rales/rhonchi appreciated, no increased work of breathing GI: soft, nondistended, nontender, BS normoactive MSK: mild right-sided flank tenderness appreciated, left side nontender Skin: warm, dry, no rash appreciated Neuro: alert, oriented, no focal neurologic deficit appreciated Results & Data Results & Data ([facility]) Vital Signs (Past 12 Hours) Vital Signs Temp Pulse Pulse Resp BP Pulse Ox 02/03/22 01:31 62 16 142/79 H 93 02/03/22 01:28 93 02/02/22 22:04 37.9 C H 83 18 96 Supervising Physician Co-Signing Physician Notes Attending addendum: I have physically seen this patient, have supervised the medical residents activities, and agree with the H&P unless as otherwise noted. Assessment and Plan: Bilateral perinephric stranding/possible pyelonephritis/possible passed kidney stone- Follow urine culture sensitivity Ceftriaxone 1 g IV given in the ED Start tamsulosin 0.4 mg daily Immunocompromised on Humira increases risk of infection NSS at 125 mils per hour Bilateral findings on CT suggestive of probable early BPH, combined with his symptoms of increasing urinary frequency and need to sit down to urinate Remaining orders and notations as noted Resident Activity Tracking Resident Involvement: Resident Care Provided and Radio Reporter Coverage Note Care Provided: Adult Hospital Medicine
[2022-02-03] MEDS ORDERED: MELATONIN 3 MG TAB PO PRN (05:13)
[2022-02-03] MEDS ORDERED: ONDANSETRON INJ 2 MG/ML 2 ML VIAL IV PRN (05:13)
[2022-02-03] MEDS ORDERED: TAMSULOSIN HCL 0.4 MG CAP PO ONE (05:13)
[2022-02-03] MEDS ORDERED: SODIUM CHLORIDE 0.9% 500 ML IV SCH (05:13)
[2022-02-03] MEDS ORDERED: POTASSIUM CHLORIDE CRTAB 20 MEQ TABCR PO STA (05:13)
[2022-02-03] MEDS: ACETAMINOPHEN 500 MG TAB PO SCH ×2 (05:46→14:48)
[2022-02-03 06:36] LABS: Basophils # (auto) 0.01 K/uL (0-0.2); Basophils % (auto) 0.1 %; Eosinophils # (auto) 0.02 K/uL (0-0.5); Eosinophils % (auto) 0.2 %; Hematocrit (blood only) 38.3 % (42-52); Hemoglobin 13.1 g/dL (14.0-18.0); Immature Granulocytes # (auto) 0.03 K/uL (0.00-0.02); Immature Granulocytes % (auto) 0.3 %; Lymphocytes # (auto) 0.64 K/uL (1.2-3.4); Lymphocytes % (auto) 6.1 %; Mean Corpuscular Hemoglobin 30.8 pg (25-34); Mean Corpuscular Hgb Conc 34.2 g/dL (32-36); Mean Corpuscular Volume 90.1 fL (80-100); Mean Platelet Volume 10.5 fL (7.4-10.4); Monocytes # (auto) 0.07 K/uL (0.11-0.59); Monocytes % (auto) 0.7 %; Neutrophils % (auto) 92.6 %; Platelet Count 215 K/uL (130-400); RDW Coefficient of Variation 14.1 % (11.5-14.5); RDW Standard Deviation 46.7 fL (36.4-46.3); Red Blood Count 4.25 M/uL (4.7-6.1); White Blood Count 10.57 K/uL (4.8-10.8)
[2022-02-03 06:47] LABS: Albumin Globulin Ratio 1.6 (0.9-2); Albumin Level 4.3 gm/dl (3.4-5.0); BUN Creatinine Ratio 21.4 (10-20); Bilirubin,Total 0.8 mg/dl (0.2-1.0); Calcium 8.8 mg/dl (8.5-10.1); Creatinine Clr Calc Pharmacy 65.9 ml/min; Est GFR (African American) 80.3 ml/min; Est GFR (Non-African American) 69.3 ml/min; Globulin 2.7 gm/dl (2.5-4.0); Potassium 3.6 mmol/L (3.5-5.1)
--- NOTE | 2022-02-03 08:13 | CT Scan Report ---
CT abd pelvis IV con only CLINICAL HISTORY: rlq PAIN COMPARISON STUDY: No previous studies for comparison. CT DOSE: 401.85 mGy.cm TECHNIQUE: Standard CT of the Abdomen and Pelvis was performed with IV contrast. A dose lowering leyla hnique was utilized adhering to the principles of ALARA. Contrast Volume: Optiray 320, 93 ml. The patient did not receive oral contrast. FINDINGS: Lung base: There is minimal atelectasis versus scarring at the right lung base. The patient is status post CABG with coronary artery calcification. Abdominal cavity: There is no evidence for abdominal mass, adenopathy or ascites. Liver: There is homogeneous attenuation of the liver parenchyma. There is no evidence for enhancing m ass lesion. There is an ill-defined area of decreased attenuation in the dome of the liver as seen on image 66. Exact etiology is uncertain and follow-up ultrasound is recommended for further evaluation . Spleen: There is homogeneous attenuation of the splenic parenchyma. There is no enhancing mass lesion . There is also a small area of low attenuation involving the inferior margin of the spleen. Etiology is uncertain and again ultrasound is recommended for further evaluation. Pancreas: There is homogeneous attenuation of the pancreatic parenchyma. There is no evidence for mas s lesion or peripancreatic fluid collection. Gall Bladder: The gallbladder is well distended with no evidence for intraluminal calculi, wall thick ening or pericholecystic edema. Adrenal glands: The adrenal glands are normal in size and attenuation. There is no evidence for enhan cing mass lesion. Kidneys: There is swelling of the right kidney when compared to the left with perinephric stranding p resent. There is mild hydronephrosis and hydroureter on the right to the level of the distal right ur eter. A 4 mm calculus is present just proximal to the right UPJ producing the obstruction present. Mu ltiple additional 2 mm nonobstructing right renal calculi are present. There is no evidence for left renal calculus or hydronephrosis. Sharply defined simple cyst is seen on the right. There is no evide nce for enhancing mass. Bowel: The bowel loops are normally placed within the abdomen and pelvis without evidence for dilatat ion or obstruction. There is no evidence for mass lesion. There is mild diverticulosis without eviden ce for diverticulitis. There are no inflammatory changes present. There is no evidence for free air. There is a normal appendix in the right lower quadrant. Bladder: The bladder is within normal limits with no evidence for focal mass, calculus or diverticulu m. : There is no evidence for pelvic mass or adenopathy. There is no evidence for pelvic ascites. Vasculature: There is no evidence for aneurysmal dilatation of the abdominal aorta. Osseous structures: There is no acute osseous pathology. IMPRESSION: 1. 4 mm distal right ureteral calculus producing mild hydronephrosis and hydroureter to the level of the calculus. There is associated swelling of the right kidney when compared to the left with mild pe rinephric stranding. 2. 2 additional nonobstructing right renal calculi present. 3. Normal appendix 4. Additional nonacute findings are delineated above. ACT 112: Negative or not required by law. Electronically signed by: Salbador Pimentel M.D. 02/03/2022 8:11 AM
[2022-02-03] MEDS ORDERED: ATORVASTATIN 40 MG TAB PO SCH (09:00)
[2022-02-03] MEDS ORDERED: ASPIRIN 81 MG ECTAB PO SCH (09:00)
--- NOTE | 2022-02-03 10:01 | Medical Student Progress Note ---
Date of Service February 03, 2022 Assessment & Plan (1) Nephrolithiasis: Plan: 56yo male with a history of nephrolithiasis (2 episodes prior), BPH, HTN, HLD, CAD, and psoriatic arthritis presents with a one-day history of right-sided flank pain radiating to groin due to obstructing ureteral calculus. #Right-sided nephrolithiasis complicated by mild pyelonephritis * In ED, labs were notable for leukocytosis to 15.8 with neutrophil predominance, creatinine of 1.58, and mild hypokalemia to 3.3. UA was notable for 3+ blood and RBCs. Blood cultures are pending. Ceftriaxone x1 given in ED. Started on tamsulosin. * CT abd/pelvis: 1. 4 mm distal right ureteral calculus producing mild hydronephrosis and hydroureter to the level of the calculus. There is associated swelling of the right kidney when compared to the left with mild perinephric stranding. 2 additional nonobstructing right renal calculi present. * Pain resolved about 0400 with no recurrence. No stone or gross hematuria with urination overnight. * Given his immunosuppression due to humira and prednisone, fever elevation to 37.9 in the ED, leukocytosis to about 16, and mild perinephric stranding, cannot rule out left sided pyelonephritis. * Given pain has resolved, plan to transition to oral cefdinir for 10 days. #Psoriatic arthritis * Humira and prednisone currently held while inpatient due to concern of infection * Will resume upon discharge #Mild hypokalemia - Resolved * Potassium 3.3 on admission; KCl 40mEq PO x1 administered overnight * Potassium 3.6, 02/03 #Liver abnormality * Abd/Pelvis CT showing homogeneous attenuation of the liver parenchyma. There is no evidence for enhancing mass lesion. There is an ill-defined area of decreased attenuation in the dome of the liver as seen on image 66. Exact etiology is uncertain and follow-up ultrasound is recommended for further evaluation. * Liver otherwise unremarkable in appearance, liver serum studies WNL * Likely incidental findings and unrelated to current clinical presentation, outpatient ultrasound and follow-up recommended #Spleen mass * Abd/Pelvis CT showing homogeneous attenuation of the splenic parenchyma. There is no enhancing mass lesion. There is also a small area of low attenuation involving the inferior margin of the spleen. Etiology is uncertain and again ultrasound is recommended for further evaluation * Likely incidental findings and unrelated to current clinical presentation, outpatient ultrasound and follow-up recommended Chronic conditions: HTN: BP well-controlled at this time; holding home losartan-HCTZ, amlodipine HLD, CAD: continue home atorvastatin, aspirin Erectile dysfunction: holding home sildenafil FEN: Heart healthy Code status: full code DVT ppx: SCDs Dispo: med/surg Admission and Anticipated Discharge Date Admission Date: February 03, 2022 Subjective No concerns this morning. Resting comfortably in bed. Appetite intact and eating breakfast. Right sided flank pain remains resolved. No episodes of colicky pain recurrence overnight. No N/V. Urinated overnight and did not notice any stones or gross hematuria in urine. Has not urinated this morning yet. Physical Exam Constitutional: WD/WN, vitals as above Respiratory: normal respiratory effort, lungs clear to auscultation Cardiovascular: RRR, no murmur, no edema Chest (Breasts): Additional Comments: No calf tenderness. Pulses intact 3+ in lower extremities. Gastrointestinal (Abdomen): normal bowel sounds, soft, nontender, no hepatosplenomegaly Inspection/Auscultation: abdomen normal to inspection No CVA tenderness. Musculoskeletal: no cyanosis or clubbing, extremities motor strength 5/5 Skin: no rashes, warm and dry Results & Data ([facility]) Vital Signs (Past 12 Hours) Vital Signs Temp Pulse Pulse Resp BP Pulse Ox 02/03/22 07:59 36.5 C 79 16 125/78 96 02/03/22 05:00 36.6 C 65 16 127/69 95 02/03/22 04:38 87 20 134/81 93 02/03/22 03:30 91 H 20 134/96 94 02/03/22 01:31 62 16 142/79 H 93 02/03/22 01:28 93 02/02/22 22:04 37.9 C H 83 18 96 Laboratory Results 02/03/22 02/03/22 02/03/22 Range/Units 06:11 06:11 06:11 WBC 10.57 (4.8-10.8) K/uL RBC 4.25 L (4.7-6.1) M/uL Hgb 13.1 L (14.0-18.0) g/dL Hct 38.3 L (42-52) % MCV 90.1 (80-100) fL MCH 30.8 (25-34) pg MCHC 34.2 (32-36) g/dL RDW Std Deviation 46.7 H (36.4-46.3) fL RDW Coeff of Seth 14.1 (11.5-14.5) % Plt Count 215 (130-400) K/uL MPV 10.5 H (7.4-10.4) fL Immature Gran % (Auto) 0.3 % Neut % (Auto) 92.6 % Lymph % (Auto) 6.1 % Garrard % (Auto) 0.7 % Eos % (Auto) 0.2 % Baso % (Auto) 0.1 % Neut # (Auto) 9.80 H (1.4-6.5) K/uL Lymph # (Auto) 0.64 L (1.2-3.4) K/uL Garrard # (Auto) 0.07 L (0.11-0.59) K/uL Eos # (Auto) 0.02 (0-0.5) K/uL Baso # (Auto) 0.01 (0-0.2) K/uL Immature Gran # (Auto) 0.03 H (0.00-0.02) K/uL Sodium 134 L (136-145) mmol/L Potassium 3.6 (3.5-5.1) mmol/L Chloride 101 (98-107) mmol/L Carbon Dioxide 22 (21-32) mmol/L Anion Gap 11 (3-11) BUN 25 H (6-23) mg/dl Creatinine 1.17 D (0.6-1.4) mg/dl Est Cr Clr Drug Dosing 65.9 ml/min Est GFR ( Amer) 80.3 ml/min Est GFR (Non-Af Amer) 69.3 ml/min BUN/Creatinine Ratio 21.4 H (10-20) Glucose 142 H (70-99(Fasting)) mg/dl Lactate (0.4-2.0) mmol/L Calcium 8.8 (8.5-10.1) mg/dl Total Bilirubin 0.8 (0.2-1.0) mg/dl AST 18 (13-39) U/L ALT 20 (7-52) U/L Alkaline Phosphatase 42 (34-104) U/L Total Protein 7.0 (6.0-8.3) gm/dl Albumin 4.3 (3.4-5.0) gm/dl Globulin 2.7 (2.5-4.0) gm/dl Albumin/Globulin Ratio 1.6 (0.9-2) Lipase (11-82) U/L Procalcitonin < 0.05 (0-0.5) ng/ml Urine Color Urine Appearance (Clear) Urine pH (4.5-7.5) Ur Specific Boelus (1.000-1.030) Urine Protein (Negative) Urine Glucose (UA) (Negative) Urine Ketones (Negative) Urine Blood (Negative) Urine Nitrite (Negative) Urine Bilirubin (Negative) Urine Urobilinogen (Negative) Ur Leukocyte Esterase (Negative) Urine WBC (Auto) (0-5) /hpf Urine RBC (Auto) (0-4) /hpf U Hyaline Cast (Auto) (0-5) /lpf U Epithel Cells (Auto) (0-5) /lpf Urine Bacteria (Auto) (Negative) SARS-CoV-2, RNA, NAAT (NEGATIVE) 02/03/22 02/03/22 02/02/22 Range/Units 00:28 00:13 22:32 WBC (4.8-10.8) K/uL RBC (4.7-6.1) M/uL Hgb (14.0-18.0) g/dL Hct (42-52) % MCV (80-100) fL MCH (25-34) pg MCHC (32-36) g/dL RDW Std Deviation (36.4-46.3) fL RDW Coeff of Seth (11.5-14.5) % Plt Count (130-400) K/uL MPV (7.4-10.4) fL Immature Gran % (Auto) % Neut % (Auto) % Lymph % (Auto) % Garrard % (Auto) % Eos % (Auto) % Baso % (Auto) % Neut # (Auto) (1.4-6.5) K/uL Lymph # (Auto) (1.2-3.4) K/uL Garrard # (Auto) (0.11-0.59) K/uL Eos # (Auto) (0-0.5) K/uL Baso # (Auto) (0-0.2) K/uL Immature Gran # (Auto) (0.00-0.02) K/uL Sodium (136-145) mmol/L Potassium (3.5-5.1) mmol/L Chloride (98-107) mmol/L Carbon Dioxide (21-32) mmol/L Anion Gap (3-11) BUN (6-23) mg/dl Creatinine (0.6-1.4) mg/dl Est Cr Clr Drug Dosing ml/min Est GFR ( Amer) ml/min Est GFR (Non-Af Amer) ml/min BUN/Creatinine Ratio (10-20) Glucose (70-99(Fasting)) mg/dl Lactate 0.8 (0.4-2.0) mmol/L Calcium (8.5-10.1) mg/dl Total Bilirubin (0.2-1.0) mg/dl AST (13-39) U/L ALT (7-52) U/L Alkaline Phosphatase (34-104) U/L Total Protein (6.0-8.3) gm/dl Albumin (3.4-5.0) gm/dl Globulin (2.5-4.0) gm/dl Albumin/Globulin Ratio (0.9-2) Lipase (11-82) U/L Procalcitonin (0-0.5) ng/ml Urine Color Yellow Urine Appearance Clear (Clear) Urine pH 5.0 (4.5-7.5) Ur Specific Boelus 1.012 (1.000-1.030) Urine Protein Negative (Negative) Urine Glucose (UA) Negative (Negative) Urine Ketones Negative (Negative) Urine Blood 3+ H (Negative) Urine Nitrite Negative (Negative) Urine Bilirubin Negative (Negative) Urine Urobilinogen Negative (Negative) Ur Leukocyte Esterase Negative (Negative) Urine WBC (Auto) 1-5 (0-5) /hpf Urine RBC (Auto) >30 H (0-4) /hpf U Hyaline Cast (Auto) 0 (0-5) /lpf U Epithel Cells (Auto) 0-5 (0-5) /lpf Urine Bacteria (Auto) Negative (Negative) SARS-CoV-2, RNA, NAAT NEGATIVE (NEGATIVE) 02/02/22 02/02/22 Range/Units 22:32 22:32 WBC 15.77 H (4.8-10.8) K/uL RBC 4.27 L (4.7-6.1) M/uL Hgb 13.1 L (14.0-18.0) g/dL Hct 38.7 L (42-52) % MCV 90.6 (80-100) fL MCH 30.7 (25-34) pg MCHC 33.9 (32-36) g/dL RDW Std Deviation 46.6 H (36.4-46.3) fL RDW Coeff of Seth 14.1 (11.5-14.5) % Plt Count 211 (130-400) K/uL MPV 10.2 (7.4-10.4) fL Immature Gran % (Auto) 0.4 % Neut % (Auto) 73.1 % Lymph % (Auto) 14.8 % Garrard % (Auto) 9.3 % Eos % (Auto) 2.3 % Baso % (Auto) 0.1 % Neut # (Auto) 11.54 H (1.4-6.5) K/uL Lymph # (Auto) 2.33 (1.2-3.4) K/uL Garrard # (Auto) 1.46 H (0.11-0.59) K/uL Eos # (Auto) 0.36 (0-0.5) K/uL Baso # (Auto) 0.02 (0-0.2) K/uL Immature Gran # (Auto) 0.06 H (0.00-0.02) K/uL Sodium 139 (136-145) mmol/L Potassium 3.3 L (3.5-5.1) mmol/L Chloride 103 (98-107) mmol/L Carbon Dioxide 26 (21-32) mmol/L Anion Gap 10 (3-11) BUN 28 H (6-23) mg/dl Creatinine 1.58 H (0.6-1.4) mg/dl Est Cr Clr Drug Dosing 53.1 ml/min Est GFR ( Amer) 55.8 ml/min Est GFR (Non-Af Amer) 48.2 ml/min BUN/Creatinine Ratio 17.7 (10-20) Glucose 104 H (70-99(Fasting)) mg/dl Lactate (0.4-2.0) mmol/L Calcium 9.1 (8.5-10.1) mg/dl Total Bilirubin 0.8 (0.2-1.0) mg/dl AST 21 (13-39) U/L ALT 22 (7-52) U/L Alkaline Phosphatase 42 (34-104) U/L Total Protein 7.2 (6.0-8.3) gm/dl Albumin 4.5 (3.4-5.0) gm/dl Globulin 2.7 (2.5-4.0) gm/dl Albumin/Globulin Ratio 1.7 (0.9-2) Lipase 41 (11-82) U/L Procalcitonin (0-0.5) ng/ml Urine Color Urine Appearance (Clear) Urine pH (4.5-7.5) Ur Specific Boelus (1.000-1.030) Urine Protein (Negative) Urine Glucose (UA) (Negative) Urine Ketones (Negative) Urine Blood (Negative) Urine Nitrite (Negative) Urine Bilirubin (Negative) Urine Urobilinogen (Negative) Ur Leukocyte Esterase (Negative) Urine WBC (Auto) (0-5) /hpf Urine RBC (Auto) (0-4) /hpf U Hyaline Cast (Auto) (0-5) /lpf U Epithel Cells (Auto) (0-5) /lpf Urine Bacteria (Auto) (Negative) SARS-CoV-2, RNA, NAAT (NEGATIVE)
[2022-02-03] MEDS ORDERED: POTASSIUM CHLORIDE CRTAB 20 MEQ TABCR PO ONE (12:00)
--- NOTE | 2022-02-03 13:41 | Med Student Discharge Summary ---
Date of Service February 03, 2022 Admission HPI Per Admitting Provider 56yo male with a history of nephrolithiasis, BPH, HTN, HLD, CAD, and psoriatic arthritis presents with a one-day history of right-sided abdominal pain. Patient notes it started in his right groin and has moved upwards. Food/fluid intake today has been normal, though patient did vomit on the way to the hospital. The pain is dull, constant, 8/10 pain. No identifiable alleviating/aggravating factors. No dysuria or hematuria noted. No prior history of abdominal surgeries. Of note, patient is on humira for psoriatic arthritis. In the ED: Patient had an elevated temp to 37.9, vitals were otherwise stable Labs were notable for a leukocytosis to 15.8 (neutrophil predominant), creatinine 1.58 (baseline 1.1), and mild hypokalemia Lactate, calcium, LFTs, and lipase were all unremarkable. UA was notable for 3+ blood and RBCs. Upon my interview (at 04:00), patient notes about 30 minutes ago, his pain suddenly resolved almost entirely. Patient notes very mild right flank discomfort but denies abdominal pain, groin pain, feeling feverish, chills, nausea, vomiting, diarrhea, CP, SOB, or other symptoms. Patient denies any urinary hesitancy or incomplete voiding. Admission Exam (Per Admitting) Constitutional Constitutional: well-appearing, no acute distress HEENT: MMM CV: regular rhythm, no murmur appreciated, extremities well-perfused, no LE edema Resp: CTABL, no wheezes/rales/rhonchi appreciated, no increased work of breathing GI: soft, nondistended, nontender, BS normoactive MSK: mild right-sided flank tenderness appreciated, left side nontender Skin: warm, dry, no rash appreciated Neuro: alert, oriented, no focal neurologic deficit appreciated Discharge Exam Constitutional: WD/WN, vitals as above Respiratory: normal respiratory effort, lungs clear to auscultation Cardiovascular: RRR, no murmur, no edema Chest (Breasts): Additional Comments: No calf tenderness. Pulses intact 3+ in lower extremities. Gastrointestinal (Abdomen): normal bowel sounds, soft, nontender, no hepatosplenomegaly Inspection/Auscultation: abdomen normal to inspection No CVA tenderness. Musculoskeletal: no cyanosis or clubbing, extremities motor strength 5/5 Skin: no rashes, warm and dry Specialty Data Hospitalist Microbiology 02/03/22 00:13 Blood Aerobic Blood Culture - Pending 02/03/22 00:13 Blood Anaerobic Blood Culture - Pending 02/03/22 00:11 Blood Aerobic Blood Culture - Pending 02/03/22 00:11 Blood Anaerobic Blood Culture - Pending Labs 02/02/22 02/02/22 02/02/22 22:32 22:32 22:32 WBC 15.77 H RBC 4.27 L Hgb 13.1 L Hct 38.7 L MCV 90.6 MCH 30.7 MCHC 33.9 RDW Std Deviation 46.6 H RDW Coeff of Seth 14.1 Plt Count 211 MPV 10.2 Immature Gran % (Auto) 0.4 Neut % (Auto) 73.1 Lymph % (Auto) 14.8 Dillon % (Auto) 9.3 Eos % (Auto) 2.3 Baso % (Auto) 0.1 Neut # (Auto) 11.54 H Lymph # (Auto) 2.33 Dillon # (Auto) 1.46 H Eos # (Auto) 0.36 Baso # (Auto) 0.02 Immature Gran # (Auto) 0.06 H Sodium 139 Potassium 3.3 L Chloride 103 Carbon Dioxide 26 Anion Gap 10 BUN 28 H Creatinine 1.58 H Est Cr Clr Drug Dosing 53.1 Est GFR ( Amer) 55.8 Est GFR (Non-Af Amer) 48.2 BUN/Creatinine Ratio 17.7 Glucose 104 H Lactate Calcium 9.1 Total Bilirubin 0.8 AST 21 ALT 22 Alkaline Phosphatase 42 Total Protein 7.2 Albumin 4.5 Globulin 2.7 Albumin/Globulin Ratio 1.7 Lipase 41 Procalcitonin Urine Color Yellow Urine Appearance Clear Urine pH 5.0 Ur Specific [place] 1.012 Urine Protein Negative Urine Glucose (UA) Negative Urine Ketones Negative Urine Blood 3+ H Urine Nitrite Negative Urine Bilirubin Negative Urine Urobilinogen Negative Ur Leukocyte Esterase Negative Urine WBC (Auto) 1-5 Urine RBC (Auto) >30 H U Hyaline Cast (Auto) 0 U Epithel Cells (Auto) 0-5 Urine Bacteria (Auto) Negative SARS-CoV-2, RNA, NAAT 02/03/22 02/03/22 02/03/22 00:13 00:28 06:11 WBC 10.57 RBC 4.25 L Hgb 13.1 L Hct 38.3 L MCV 90.1 MCH 30.8 MCHC 34.2 RDW Std Deviation 46.7 H RDW Coeff of Seth 14.1 Plt Count 215 MPV 10.5 H Immature Gran % (Auto) 0.3 Neut % (Auto) 92.6 Lymph % (Auto) 6.1 Dillon % (Auto) 0.7 Eos % (Auto) 0.2 Baso % (Auto) 0.1 Neut # (Auto) 9.80 H Lymph # (Auto) 0.64 L Dillon # (Auto) 0.07 L Eos # (Auto) 0.02 Baso # (Auto) 0.01 Immature Gran # (Auto) 0.03 H Sodium Potassium Chloride Carbon Dioxide Anion Gap BUN Creatinine Est Cr Clr Drug Dosing Est GFR ( Amer) Est GFR (Non-Af Amer) BUN/Creatinine Ratio Glucose Lactate 0.8 Calcium Total Bilirubin AST ALT Alkaline Phosphatase Total Protein Albumin Globulin Albumin/Globulin Ratio Lipase Procalcitonin Urine Color Urine Appearance Urine pH Ur Specific [place] Urine Protein Urine Glucose (UA) Urine Ketones Urine Blood Urine Nitrite Urine Bilirubin Urine Urobilinogen Ur Leukocyte Esterase Urine WBC (Auto) Urine RBC (Auto) U Hyaline Cast (Auto) U Epithel Cells (Auto) Urine Bacteria (Auto) SARS-CoV-2, RNA, NAAT NEGATIVE 02/03/22 02/03/22 06:11 06:11 WBC RBC Hgb Hct MCV MCH MCHC RDW Std Deviation RDW Coeff of Seth Plt Count MPV Immature Gran % (Auto) Neut % (Auto) Lymph % (Auto) Dillon % (Auto) Eos % (Auto) Baso % (Auto) Neut # (Auto) Lymph # (Auto) Dillon # (Auto) Eos # (Auto) Baso # (Auto) Immature Gran # (Auto) Sodium 134 L Potassium 3.6 Chloride 101 Carbon Dioxide 22 Anion Gap 11 BUN 25 H Creatinine 1.17 D Est Cr Clr Drug Dosing 65.9 Est GFR ( Amer) 80.3 Est GFR (Non-Af Amer) 69.3 BUN/Creatinine Ratio 21.4 H Glucose 142 H Lactate Calcium 8.8 Total Bilirubin 0.8 AST 18 ALT 20 Alkaline Phosphatase 42 Total Protein 7.0 Albumin 4.3 Globulin 2.7 Albumin/Globulin Ratio 1.6 Lipase Procalcitonin < 0.05 Urine Color Urine Appearance Urine pH Ur Specific [place] Urine Protein Urine Glucose (UA) Urine Ketones Urine Blood Urine Nitrite Urine Bilirubin Urine Urobilinogen Ur Leukocyte Esterase Urine WBC (Auto) Urine RBC (Auto) U Hyaline Cast (Auto) U Epithel Cells (Auto) Urine Bacteria (Auto) SARS-CoV-2, RNA, NAAT Abd/Pelvic CT: FINDINGS: Liver: There is homogeneous attenuation of the liver parenchyma. There is no evidence for enhancing mass lesion. There is an ill-defined area of decreased attenuation in the dome of the liver as seen on image 66. Exact etiology is uncertain and follow-up ultrasound is recommended for further evaluation. Spleen: There is homogeneous attenuation of the splenic parenchyma. There is no enhancing mass lesion. There is also a small area of low attenuation involving the inferior margin of the spleen. Etiology is uncertain and again ultrasound is recommended for further evaluation. Kidneys: There is swelling of the right kidney when compared to the left with perinephric stranding present. There is mild hydronephrosis and hydroureter on the right to the level of the distal right ureter. A 4 mm calculus is present just proximal to the right UPJ producing the obstruction present. Multiple additional 2 mm nonobstructing right renal calculi are present. There is no evidence for left renal calculus or hydronephrosis. Sharply defined simple cyst is seen on the right. There is no evidence for enhancing mass. IMPRESSION: 1. 4 mm distal right ureteral calculus producing mild hydronephrosis and hydroureter to the level of the calculus. There is associated swelling of the right kidney when compared to the left with mild perinephric stranding. 2. 2 additional nonobstructing right renal calculi present. 3. Normal appendix 4. Additional nonacute findings are delineated above. Discharge Data Consultations 02/03/22 02:38 ED Decision to Admit Stat Hospital Course (1) Ureterolithiasis: 56yo male with a history of nephrolithiasis, BPH, HTN, HLD, CAD, and psoriatic arthritis on humira presents with right-sided flank pain radiating to groin most likely due to obstructing ureteral stone. #Right-sided nephrolithiasis, stone likely passed --> symptoms resolved * CT abd/pelvis:1. 4 mm distal right ureteral calculus producing mild hydronephrosis and hydroureter to the level of the calculus. There is associated swelling of the right kidney when compared to the left with mild perinephric stranding. 2 additional nonobstructing right renal calculi present. * Given his immunosuppression due to humira and prednisone, fever elevation to 37.9 in the ED, leukocytosis to about 16, and mild perinephric stranding, cannot rule out sided pyelonephritis. * S/p ceftriaxone x1. Oral cefdinir for 10 days. * Tamsulosin discontinued with resolution of flank pain, likely stone passed * Will continue to monitor results of pending blood cultures and up date patient as resulted. #Mild hypokalemia - Resolved #Liver and spleen abnormality * Abd/Pelvis CT showing homogeneous attenuation of the liver and splenic parenchyma. There is no evidence for enhancing mass lesions. * Liver otherwise unremarkable in appearance, liver serum studies WNL * Likely incidental findings and unrelated to current clinical presentation, outpatient ultrasound and follow-up recommended HTN, HLD, CAD, Erectile dysfunction, psoriatic arthritis: Continue home regimen Patient was full code this admission. Discharge Plan Discharge Items Patient Disposition: Home - Self-Care Reason For Visit: ABDOMINAL PAIN Discharge Diagnosis: nephrolithaisis Condition on Discharge: Good Activity: Resume your previous activity Bathing: No limitations Driving/Machine Use: No limitations Weightbearing: Full weightbearing Non-emergency contact: Primary Care Provider Call non-emergency contact if: you have any medication questions and you have a fever Follow-up/Referrals: Mari Bae MD [Primary Care Provider] - (hospital discharge follow up within 1 week) Diet: Regular Addtl Attending Provider Instructions: Hi Mr. Kay, You were admitted to the [facility] service for the concern of a right sided kidney stone. We discussed following up with your PCP, Dr. Bae and resuming your discussion of lithotripsy you had in the past. As we discussed, the CT of your abdomen showed enhancements in the liver and spleen. Radiology report recommends following up with an outpatient ultrasound to definitely conclude what these findings mean. There is no mass visualized on the report. As the stone has likely passed, we have discontinued the medication flomax to aid in passing the stone. To cover for an infection of the kidney, we are starting you on 10 days of the antibiotic Cefdinir to be taken twice daily. Start the first dose tonight, closer to midnight if possible as you had received the IV antibiotic equivalent during the hospital stay. This has been sent to Kelly at [facility]. While the blood cultures we took are still pending, we will contact you if the mikeur es are positive. As we discussed this will only change the duration of antibiotic course for a longer period of time. If you develop any new or worsening symptoms including fever, chills, sweats, ch est pain, chest pressure, difficulty breathing, uncontrolled nausea/vomiting, rash, wheezing, passing out or nearly passing out, bleeding, black/bloody bowel movements, or other new or concerning symptoms please call your primary care physician, or call 911 for re-evaluation in the emergency department if you are very concerned. Pending Studies at Discharge: No Stand-Alone Forms: My [facility] [employer], Smoking Cessation Medications and DC Order Prescriptions: New cefdinir 300 mg capsule 300 mg PO BID 10 Days Qty: 20 RF: 0 Continued omega-3 fatty acids 100 mg tablet,chewable 600 mg PO QAM RF: 0 prednisone 5 mg tablet 5 mg PO DAILY RF: 0 sildenafil 50 mg tablet 50 mg PO DAILY PRN (Reason: sexual activity) Qty: 30 RF: 2 amlodipine 5 mg tablet 5 mg PO QAM Qty: 90 RF: 3 atorvastatin 80 mg tablet 80 mg PO DAILY Qty: 90 RF: 3 losartan-hydrochlorothiazide 100-25 mg tablet 1 tab PO QAM Qty: 90 RF: 3 potassium citrate 10 mEq (1,080 mg) tablet extended release 10 meq PO QAM Qty: 90 RF: 3 acetaminophen [Tylenol Extra Strength] 500 mg Tablet 1,000 mg PO Q6H PRN (Reason: Headache) RF: 0 aspirin [Adult Low Dose Aspirin] 81 mg tablet,delayed release (DR/EC) 81 mg PO QAM RF: 0 Humira Pen 40 mg/0.8 mL pen injector kit 40 mg SQ Q14D RF: 0 Discharge Orders: Discharge Order (Routine); Ordered 02/03/22 Ordered By: Mayito Morales/Other Patient Handouts: ED Kidney Stone, Passed Admission Data Admit Date/Time: 02/03/22 04:25 Attending Provider: Nik Rendon Admit Provider: Last Riggs Primary Care Provider: Mari Bae Other Providers: Surya Hansen Other Interventions: Discharge Summary Assessment (RN) Last Done: 02/03/22 16:00 Supervising Attestation I personally examined the patient and verified all earl points of history and exam, discussed case, and agree with decision making with Maci FIERRO. Feeling better pain is good. Feels up to going home. Vitals noted, in general he is awake and alert pleasant no distress. HEENT normocephalic atraumatic mucous membranes moist. Breathing unlabored no accessory muscle use good effort. Skin shows no rashes no pallor or icterus. Neuro without focal deficits. Flank painappears to been due to ureterolithiasis, which clinically has passed. In that respect he appears stable for home. Leukocytosis, perinephric stranding, low-grade tempgiven his immune compromise concerning for pyelonephritis subsequent to kidney stonehowever, he is still stable for home in this regard, just would require a course of p.o. antibiotics. We discussed that this is a context in which bacteremia is not unexpected, but given how stable he is, still reasonable to go home on p.o. antibioticsit is just that should his blood cultures surprise us with growth, we may need to lengthen or adjust his course of antibioticshe is okay with this. Liver and splenic nondescript imaging findingsfollow-up ultrasound as an outpatient. Stable from, otherwise as above
--- NOTE | 2022-02-03 18:39 | Billing Data ---
Date of Service February 03, 2022 Coding Level of Care Code 02243 OBS Care - Discharge
--- NOTE | 2022-02-04 03:57 | Billing Data ---
Date of Service February 04, 2022 Coding Level of Care Code INT OBSERVATION CARE 70M LVL 3
[2022-02-04] MEDS ORDERED: TAMSULOSIN HCL 0.4 MG CAP PO SCH (09:00)
== END 2022-02-03 16:22 | disposition home or self-care (01) ==
LOC: ED 21:58 → 3N 21:58 → SUATTDRO 02-03 04:25 → 3N 02-03 04:39